=== PATIENT | female | born 1970 | race Caucasian/White ===

== ENCOUNTER → 2018-05-04 | Outpatient (CLI) | payer BC ==
[~2018-05-04] MED LIST: ATRV10T PO; ESCT10T PO; FLUT16SP22 NSEACH; HYDR-34 PO; LVT.05T PO; YAZMIN PO
--- NOTE | 2018-05-04 20:54 | Diagnostic Imaging Report ---
INDICATION: Routine screening. COMPARISON: Prior mammograms from 02/18/2015 and 11/28/2013. EXAMINATION: 2D and 3D bilateral screening mammography was performed with CAD. The current study was also evaluated with a Computer Aided Detection (CAD) system. FINDINGS: Both breasts remain heterogeneously dense, limiting the sensitivity of mammography. There is a cluster of microcalcifications in the medial aspect of the right breast which appear to be slightly increasing in size and compared with prior mammograms. Additional views of these calcifications are recommended. There are numerous benign calcifications in both breasts. There is an area of linear calcifications in the medial aspect of the left breast which also may be slightly increasing. Additional views of these calcifications are recommended as well. No mass is seen. The axillae are unremarkable. IMPRESSION: Bilateral breast calcifications appear to be slightly increasing since prior mammograms. Additional views are recommended for further evaluation. ACR BI-RADS Category 0: Incomplete. (Needs additional imaging evaluation). Result letter will be mailed to the patient. Note: At least 10% of breast cancer is not imaged by mammography. Dictated on workstation # [id number]
== END ==
LOC: RAD 08:35
PROVIDERS: ATTEND Internal Medicine
DX: Z12.31 Encounter for screening mammogram for malignant neoplasm of breast (principal); R92.1 Mammographic calcification found on diagnostic imaging of breast
CPT/HCPCS: 77067

== ENCOUNTER → 2022-06-06 | Outpatient (CLI) | payer BC ==
--- NOTE | 2022-06-06 12:27 | Diagnostic Imaging Report ---
INDICATION: Routine screening. COMPARISON: 05/04/2018 and 02/18/2015. TECHNIQUE: 2D and 3D bilateral screening mammography was performed with CAD. FINDINGS: Both breasts are heterogeneously dense, limiting the sensitivity of mammography. Calcifications throughout the right breast appear stable. The calcifications are in a somewhat linear distribution in the medial left breast showing some slight increase in number. Additional views were recommended in 2018 but reportedly the patient did not return. The calcifications in the central and outer left breast appear to be fairly stable although there is a cluster in the outer portion at mid depth for which additional views would be recommended as well. No masses are seen. IMPRESSION: Left breast calcifications. Additional views are recommended for further evaluation. ACR BI-RADS Category 0: Incomplete. (Needs additional imaging evaluation). Result letter will be mailed to the patient. Note: At least 10% of breast cancer is not imaged by mammography. Dictated by: Dictated on workstation # [id number]
== END ==
LOC: RAD 10:57
PROVIDERS: ATTEND Internal Medicine
DX: Z12.31 Encounter for screening mammogram for malignant neoplasm of breast (principal); R92.1 Mammographic calcification found on diagnostic imaging of breast
CPT/HCPCS: 77063; 77067

== ENCOUNTER → 2022-09-07 | Outpatient (CLI) | payer BC ==
--- NOTE | 2022-09-07 19:36 | Diagnostic Imaging Report ---
INDICATION: Left breast calcifications. Patient presents for additional views. COMPARISON: Correlation is made with the screening mammogram from 06/06/2022. EXAMINATION: Unilateral left 2D and 3D diagnostic mammography was performed. This included magnification CC and ML views as well as conventional 90 degree lateral view. There are numerous calcifications throughout both breasts, majority of which appear to be punctate and benign. There is a cluster in the outer portion of the left breast at mid depth on the CC view which is somewhat suspicious and tissue sampling would be recommended. There is also a cluster in the medial aspect of the left breast which is somewhat suspicious as well. No mass is identified. IMPRESSION: Left breast calcifications. Tissue sampling would be recommended. These would be amenable to stereotactic biopsy approach. A biopsy of both the medial and lateral breast clusters would be recommended. ACR BI-RADS Category 4: Suspicious abnormality. Result letter will be mailed to the patient. Note: At least 10% of breast cancer is not imaged by mammography. Dictated by: Dictated on workstation # [id number]
== END ==
LOC: RAD 13:15
PROVIDERS: ATTEND Internal Medicine
DX: N63.20 Unspecified lump in the left breast, unspecified quadrant (principal); R92.1 Mammographic calcification found on diagnostic imaging of breast
CPT/HCPCS: 77065; G0279

== ENCOUNTER → 2022-09-28 | Outpatient (CLI) | payer BC ==
[~2022-09-28] VITALS: Ht 162.6 cm; Wt 86.4 kg
[~2022-09-28] MED LIST changes: +LIDOCAINE 1% INJ 10 ML VIAL INJ ONE
--- NOTE | 2022-09-28 13:07 | Diagnostic Imaging Report ---
INDICATION: Left breast calcifications. Patient presents for stereotactic biopsy. DETAILS OF THE PROCEDURE: The patient was brought to the stereotactic suite and placed in a chair in the sitting upright position. The left breast was positioned lateral medial. Calcifications in the lower and outer aspect of the left breast were stereotactically targeted. The lateral left breast was prepped and draped in the usual sterile fashion. A small amount of 1% lidocaine was utilized for local anesthesia. An 8 gauge stereotactic needle was advanced per stereotactic coordinates. A total of 4 core biopsies was obtained with a vacuum-assisted device. All images were reviewed on a dedicated workstation. A specimen radiograph was obtained demonstrating numerous microcalcifications in all 4 samples. A marker clip was deployed. The needle was removed and hemostasis was obtained. The patient tolerated the procedure well. The patient obtained a 2D CC and ML mammogram post procedure to evaluate clip placement. The clip appears to be located in the lower outer left breast. IMPRESSION: Successful stereotactic biopsy of the microcalcifications in the lower outer left breast utilizing an 8 gauge vacuum-assisted device. Pathology results are currently pending. Dictated by: Dictated on workstation # [id number]
--- NOTE | 2022-09-28 13:32 | Diagnostic Imaging Report ---
INDICATION: Left breast calcifications. The patient presents for stereotactic biopsy. DETAILS OF THE PROCEDURE: The patient was brought to the stereotactic suite and placed into a chair in a sitting upright position. The left breast was positioned medial lateral. The calcifications in the upper portion of the left breast were stereotactically targeted. The medial left breast was then prepped and draped in the usual sterile fashion. A small amount of 1% lidocaine was utilized for local anesthesia. All images were viewed on a dedicated workstation. An 8 gauge needle was advanced from a mediolateral approach and placed per stereotactic coordinates. A total of 4 core biopsies was obtained utilizing a vacuum-assisted device. The specimen radiograph does show several calcifications present; however, an additional 4 core biopsies were obtained. A marker clip was then deployed. The needle was removed and hemostasis was obtained. Followup 2D CC and ML mammograms show the clip in the upper left breast. This appears to be laterally located as well. On the post procedure mammogram, it appears that the medial calcifications were not sampled. The patient tolerated the procedure well. IMPRESSION: Stereotactic biopsy of calcifications in the upper aspect of the left breast. At the completion of the procedure and performance of the post procedure mammograms, clips appear to be both superiorly and inferiorly within the breast; however, both appear to be somewhat lateral in location. The medial calcifications were likely not sampled. We will await pathology results. At that time, a management decision will be made as to attempted repeat stereotactic biopsy of the more medial breast calcifications versus a followup mammogram in 6 months to show stability. An addendum will be issued once pathology results are received. Dictated by: Dictated on workstation # [id number]
== END ==
LOC: RAD 10:15
PROVIDERS: ATTEND Internal Medicine
DX: N63.23 Unspecified lump in the left breast, lower outer quadrant (principal)
CPT/HCPCS: 19081; 19082; A4648